=== PATIENT | male | born 1995 | race Two or more races ===

== ENCOUNTER 2016-11-27 08:53 | Emergency (ER) | payer MEDICAID, OTHER ==
[~2016-11-27] VITALS: Ht 182.9 cm; Wt 59.0 kg
[2016-11-27] MEDS ORDERED: ONDANSETRON HCL 4 MG/2 ML VIAL IM ONE (09:45)
[2016-11-27] MEDS ORDERED: HYDROmorphone HCL 2 MG/ML VL IM ONE (09:45)
[2016-11-27 11:06] VITALS: BP 116/63
[2016-11-27] MEDS ORDERED: HYDROcodone-ACET 10/325MG TAB PO ONE (13:15)
== END 2016-11-27 13:45 | disposition home or self-care (01) ==
LOC: ER 08:53
DX: S42.001A Fracture of unspecified part of right clavicle, initial encounter for closed fracture (principal); S39.012A Strain of muscle, fascia and tendon of lower back, initial encounter; J45.909 Unspecified asthma, uncomplicated; Z88.6 Allergy status to analgesic agent; V49.59XA Passenger injured in collision with other motor vehicles in traffic accident, initial encounter; Y93.89 Activity, other specified; Y99.8 Other external cause status; Y92.488 Other paved roadways as the place of occurrence of the external cause
CPT/HCPCS: 29105; 72131; 73030; 96372; 99284; J1170; J2405